=== PATIENT | male | born 1975 | race Caucasian/White ===

== ENCOUNTER 2018-01-19 12:42 | Inpatient (IN) | payer OTHER ==
[~2018-01-19] VITALS: Ht 190.5 cm; Wt 145.1 kg
[~2018-01-19 12:42] MED LIST: ACET-2619 PO; ACET-8386 PO; CIPR250T3 PO; GLIP5TAB4 PO; INSULIN NEEDLES; LEVEMIR SUBQ; LISI-420 PO; METF850T PO; OMEG1SGL6 PO; OXYC1TAB PO; SITA25TA3 PO; TRAM50TA1 PO
--- NOTE | 2018-01-19 12:42 | NUR ---
PATIENT BIBA TO BED 02 @1587
[2018-01-19 12:43] VITALS: BP 179/107
--- NOTE | 2018-01-19 12:43 | NUR ---
PATIENT PRESENTS TO ED [facility] WITH C/O OF EPIGASTRIC PAIN X 4 DAYS THAT RADIATES TO THE L SIDE OF CHEST 10/10 PAIN THAT IS DESCRIBED SHARP AND TIGHT PER PATIENT . PT STATES " I THOUGHT IT WAS FOOD POISINING BUT PAIN HAS GOTTEN WORSE AND I BECAME NAUSEOUS ON THE WAY OVER HER TO THE HOSPITAL" . SKIN IS PINK/WARM/DRY; AAOX4 WITH EVEN AND STEADY GAIT; PT. DENIES SOB . PATIENT POSITIONED FOR COMFORT, AND BAG PROVIDED FOR NAUSEA ; HOB ELEVATED; BEDRAILS UP X2; BED DOWN. ER MD MADE AWARE OF PT STATUS.
--- NOTE | 2018-01-19 12:47 | NUR ---
Patient being evaluated by DR TOVAR at bedside.
[2018-01-19] MEDS ORDERED: NACL 0.9% 1,000 ML IV ONE ×2 (12:50→15:25)
[2018-01-19] MEDS ORDERED: ONDANSETRON 4 MG/2 ML VIAL IVP ONE (12:50)
[2018-01-19 13:33] LABS: LIPASE 6 U/L (73-393)
[2018-01-19] MEDS ORDERED: fentaNYL 0.05 MG/ML VIAL IVP ONE (13:50)
[2018-01-19 14:18] LABS: BILIRUBIN,URINE 1+ (NEGATIVE); BLOOD, URINE 1+ (NEGATIVE); LEUKOCYTE ESTERASE ,URINE NEGATIVE (NEGATIVE); NITRITE, URINE NEGATIVE (NEGATIVE); UGLUCOSE 3+ (NEGATIVE)
[2018-01-19 14:19] LABS: APPEARANCE,URINE CLEAR (CLEAR); COLOR,URINE STRAW (YELLOW)
[2018-01-19 14:28] LABS: RBC,URINE 0-5 (RARE) /HPF (0-5)
[2018-01-19 14:29] LABS: WBC,URINE NONE SEEN /HPF (0-5)
--- NOTE | 2018-01-19 14:37 | NUR ---
PT. IN BED SLEEPING WITH EVEN AND UNLABORED RESPIRATIONS, VSS. BED IN LOWEST POSITION AND SIDE RAILS UP.
[2018-01-19] MEDS ORDERED: ASPIRIN 81 MG TAB.CHEW PO ONE (15:00)
[2018-01-19] MEDS ORDERED: MORPHINE SULFATE 2 MG/ML SYR IVP ONE (15:05)
[2018-01-19] MEDS ORDERED: NITROGLYCERIN 2% 1 GM PKT TP ONE (15:05)
[2018-01-19 15:11] LABS: ACETONE, SERUM NEGATIVE (NEGATIVE)
--- NOTE | 2018-01-19 15:22 | NUR ---
CALLED LAB FOR PT INR RESULTS, WAS TOLD BY JUDICIAL ASSISTANT THAT BLOOD WAS TOO LIPEMIC AND COULD NOT GET A COAGULATION STATUS, REPORTED TO MD, NEW ORDERS WHERE GIVEN. WILL MONITOR PATIENT.
[2018-01-19] MEDS ORDERED: ENOXAPARIN 120 MG/0.8 ML SYR SUBQ ONE ×2 (15:25→15:50)
[2018-01-19] MEDS ORDERED: INSULIN REGULAR, HUMAN 100 UNIT/ML VIAL IV ONE (15:25)
[2018-01-19] MEDS ORDERED: METOPROLOL 5 MG/5 ML VIAL IVP ONE (15:30)
[2018-01-19] MEDS ORDERED: ENOXAPARIN 30 MG/0.3 ML SYR SUBQ ONE (15:50)
[2018-01-19 15:59] LABS: RED BLOOD CELL COUNT(AUTO) 5.12 MIL/uL (4.20-6.10); WHITE BLOOD COUNT (AUTO) 12.7 K/uL (4.8-10.8)
[2018-01-19 16:00] LABS: HEMOGLOBIN 16.1 g/dL (12.0-18.0); LYMPHOCYTES % (AUTO) 16.9 % (20.5-51.1); MEAN CORPUSCULAR HEMOGLOBIN 32 pg (27-31); MEAN CORPUSCULAR HGB CONC 37 g/dL (33-37); MONOCYTES % (AUTO) 5.3 % (1.7-9.3); NEUTROPHILS % (AUTO) 77.2 % (42.2-75.2); PLATELET COUNT (AUTO) 303 K/uL (140-450); RED CELL DISTRIBUTION WIDTH 12.5 % (11.6-13.7)
[2018-01-19 16:01] LABS: BASOPHILS % (AUTO) 0.6 % (0.0-2.0)
[2018-01-19] MEDS ORDERED: LORazepam 2 MG/ML VIAL IVP PRN (16:20)
[2018-01-19] MEDS ORDERED: MORPHINE SULFATE 2 MG/ML SYR IVP PRN (16:20)
[2018-01-19] MEDS ORDERED: HYDROcodone/APAP 5/325 MG 1 TAB TAB PO PRN (16:20)
[2018-01-19] MEDS ORDERED: DEXTROSE 50% 50 ML SYR IVP PRN (16:30)
[2018-01-19] MEDS ORDERED: cloNIDine 0.1 MG TAB PO PRN (16:30)
[2018-01-19] MEDS ORDERED: BLOOD GLUCOSE MONITORING 1 DEV DEV FS SCH (16:30)
[2018-01-19] MEDS: BLOOD GLUCOSE MONITORING 1 DEV DEV FS SCH ×2 (16:44→20:17)
[2018-01-19 17:15] VITALS: BP 143/79
[2018-01-19] MEDS: NACL 0.9% 1,000 ML IV SCH (17:15)
--- NOTE | 2018-01-19 17:15 | NUR ---
RECEIVED PATIENT REPORT FROM ER NURSE, PATIENT IS AAOX4 AND SHOWS NO S/S OF ACUTE DISTRESS ON O2 @ 2L VIA NC, SKIN INTACT, ON TELE MONITOR, C/O EPIGASTRIC PAIN RADIATING TO LEFT SIDE OF ABD 7/10 PT ALREADY GIVEN PAIN MED IN ER, IV NOTED ON THE LEFT HAND PATENT AND INTACT WITH IVF'S INFUSING WELL, DISCUSSED POC WITH PATIENT AND HE VERBALIZED UNDERSTANDING, SAFETY PRECAUTIONS IN PLACE, BED IN LOW POSITION WITH CALL LIGHT WITHIN REACH.
--- NOTE | 2018-01-19 17:17 | NUR ---
Patient will be admitted to care of DR. MCDERMOTT . Admited to TELEMETRY . Will go to room 106 B. Belongings list completed. Report to RACHEL TIRADO .
[2018-01-19 18:03] LABS: ANION GAP 24.7 (8-16); CARBON DIOXIDE 17.2 mmol/L (21-32); POTASSIUM 4.9 mmol/L (3.5-5.1)
[2018-01-19 18:04] LABS: CREATININE 0.9 mg/dL (0.7-1.3); TOTAL BILIRUBIN 0.8 mg/dL (0.0-1.0)
[2018-01-19] MEDS: MORPHINE SULFATE 4 MG/ML SYR IVP PRN ×2 (18:33→22:20)
--- NOTE | 2018-01-19 18:43 | NUR ---
ADMINISTERED PRN PAIN MED FOR 10/10 ABD PAIN, WILL ENDORSE TO HAND ROUTER OPERATOR TO REASSESS.
--- NOTE | 2018-01-19 19:29 | NUR ---
PATIENT REPORT GIVEN TO NIGHT NURSE, PATIENT ENDORSED IN STABLE CONDITION.
[2018-01-19 20:00] VITALS: BP 130/66
[2018-01-19] MEDS: METOPROLOL 25 MG TAB PO SCH (20:24)
[2018-01-19] MEDS: INSULIN LANTUS 100 UNITS/ML 10 ML VIAL SUBQ SCH (20:28)
[2018-01-19] MEDS: INSULIN LISPRO SLIDING SCALE 100 UNITS/ML VIAL SUBQ PRN (20:29)
[2018-01-19] MEDS ORDERED: NITROGLYCERIN 0.4 MG TAB SL PRN (21:00)
--- NOTE | 2018-01-19 21:00 | NUR ---
PT C/O PAIN 04/28 ON THE CHEST THAT RADIATES TO THE LEFT SIDE, PT STATED HAVING NAUSEA AND VOMITTING AFTER DOSE OF MORPHINE, CALLED DR. VICTOR REGARDING PT PAIN, STATED TO ORDER 0.4MG NITRO SL Q5MIN FOR CHEST PAIN, WILL PUT IN ORDER AND CONTINUE WITH ORDERS.
--- NOTE | 2018-01-19 21:15 | NUR ---
CALLED MATERIALS RESEARCH ENGINEER FOR MEDICATION NITRO THAT IS NOT AVAILABLE ON UNIT, MATERIALS RESEARCH ENGINEER SAID HE WILL GET IT AND BRING IT TO THE UNIT.
--- NOTE | 2018-01-19 21:27 | NUR ---
NITRO ADMINISTERED TO PT, PT STABLE, NO DISTRESS NOTED, WILL CHECKED PT STATUS IN 5 MINUTES.
--- NOTE | 2018-01-19 21:31 | NUR ---
PT STATED PAIN IS MORE TOWARDS THE UPPER ABD AREA CURRENTLY, PT BP 107/57 HR 90, NO ADDITIONAL NITRO WAS GIVEN DUE TO PT BP AND PAIN NO LONGER IN THE CHEST AREA. WILL MEDICATE WHEN PT PAIN MEDICATION IS DUE.
--- NOTE | 2018-01-19 22:01 | NUR ---
IV 20G ON THE L HAND LEAKING AND INFILTRATED, NEW IV 22G ON THE L FA INSERTED, OLD IV TAKEN OUT, CATH INTACT, PT TOLERATED WELL, NO DISTRESS NOTED, CALL LIGHT WITHIN REACH, WILL CONTINUE TO MONITOR.
[2018-01-19] MEDS: ONDANSETRON 4 MG/2 ML VIAL IVP PRN (22:20)
--- NOTE | 2018-01-19 22:20 | NUR ---
PT C/O PAIN, PAIN MEDICATION GIVEN, PT TOLERATED WELL, NO DISTRESS NOTED, CALL LIGHT WITHIN REACH, WILL CONTINUE TO MONITOR.
[2018-01-19 22:26] LABS: CREATINE KINASE MB 0.5 ng/mL (0-3.6)
[2018-01-20] VITALS: BP 127/76
--- NOTE | 2018-01-20 00:01 | NUR ---
CHECKED ON PT, PT SLEEPING, NO DISTRESS NOTED, CALL LIGHT WITHIN REACH, WILL CONTINUE TO MONITOR.
[2018-01-20] MEDS: ONDANSETRON 4 MG/2 ML VIAL IVP PRN ×4 (02:40→20:24)
[2018-01-20] MEDS: MORPHINE SULFATE 4 MG/ML SYR IVP PRN ×4 (02:40→20:24)
--- NOTE | 2018-01-20 02:40 | NUR ---
PT C/O PAIN, PAIN MEDICATION GIVEN, PT TOLERATED WELL, NO DISTRESS NOTED, CALL LIGHT WITHIN REACH, WILL CONTINUE TO MONITOR.
[2018-01-20] MEDS: NACL 0.9% 1,000 ML IV SCH ×3 (02:47→15:19)
[2018-01-20 04:00] VITALS: BP 130/58
[2018-01-20] MEDS: BLOOD GLUCOSE MONITORING 1 DEV DEV FS SCH ×4 (06:20→21:07)
[2018-01-20] MEDS: INSULIN LISPRO SLIDING SCALE 100 UNITS/ML VIAL SUBQ PRN ×4 (06:23→21:16)
--- NOTE | 2018-01-20 06:23 | NUR ---
DUE MEDICATION GIVEN, PT TOLERATED WELL, NO DISTRESS NOTED, CALL LIGHT WITHIN REACH, WILL CONTINUE TO MONITOR.
--- NOTE | 2018-01-20 07:18 | NUR ---
ENDORSED PLAN OF CARE TO DAY SHIFT NURSE [place] RN, PT STABLE, NO DISTRESS NOTED, CALL LIGHT WITHIN REACH.
--- NOTE | 2018-01-20 07:19 | NUR ---
REPORT RECEIVED FROM MANAGER REGIONAL NURSE AT BEDSIDE FOR CONTINUITY OF CARE. PATIENT ASLEEP BUT AROUSABLE, ORIENTED X4, NO S/S OF DISTRESS NOTED, RESPIRATION EVEN AND UNLABORED, ON ROOM AIR. PATIENT AMBULATORY, NO C/O OF PAIN AT THIS TIME. L FA #24 IV PATENT AND INTACT, INFUSING IVF WELL. UPDATED BOARD, VERBALIZED PLAN OF CARE TO PATIENT, PATIENT VERBALIZED UNDERSTANDING. SAFETY PRECAUTION IN PLACE, CALL LIGHT WITHIN REACH, WILL CONTINUE TO MONITOR PATIENT.
[2018-01-20 08:00] VITALS: BP 115/55
[2018-01-20 08:22] LABS: BASOPHILS # (AUTO) 0.1 K/uL (0.00-0.22); BASOPHILS % (AUTO) 0.7 % (0.0-2.0); EOSINOPHILS # (AUTO) 0.1 K/uL (0-0.4); EOSINOPHILS % (AUTO) 0.9 % (0.0-4.0); HEMATOCRIT 38.9 % (36-52); HEMOGLOBIN 13.5 g/dL (12.0-18.0); LYMPHOCYTES # (AUTO) 1.6 K/uL (2.0-11.5); LYMPHOCYTES % (AUTO) 17.3 % (20.5-51.1); MEAN CORPUSCULAR HEMOGLOBIN 30 pg (27-31); MEAN CORPUSCULAR HGB CONC 35 g/dL (33-37); MONOCYTES # (AUTO) 0.5 K/uL (0.8-1.0); MONOCYTES % (AUTO) 5.4 % (1.7-9.3); NEUTROPHILS # (AUTO) 6.8 K/uL (1.8-7.7); NEUTROPHILS % (AUTO) 75.7 % (42.2-75.2); PLATELET COUNT (AUTO) 171 K/uL (140-450); RED BLOOD CELL COUNT(AUTO) 4.58 MIL/uL (4.20-6.10); RED CELL DISTRIBUTION WIDTH 12.9 % (11.6-13.7)
--- NOTE | 2018-01-20 08:36 | NUR ---
PT C/O PAIN, PAIN MEDICATION GIVEN, PT TOLERATED WELL, NO DISTRESS NOTED, CALL LIGHT WITHIN REACH, WILL CONTINUE TO MONITOR.
[2018-01-20] MEDS: METOPROLOL 25 MG TAB PO SCH ×2 (08:47→20:18)
[2018-01-20] MEDS: ASPIRIN 81 MG TAB.CHEW PO SCH (08:47)
[2018-01-20 08:50] LABS: ALBUMIN 2.3 g/dL (3.4-5.0); ANION GAP 11.8 (8-16); CARBON DIOXIDE 25.8 mmol/L (21-32); CREATININE 0.7 mg/dL (0.7-1.3); POTASSIUM 3.6 mmol/L (3.5-5.1); TOTAL BILIRUBIN 0.9 mg/dL (0.0-1.0)
[2018-01-20 09:00] LABS: CREATINE KINASE MB 0.3 ng/mL (0-3.6)
[2018-01-20] MEDS ORDERED: FAMOTIDINE 20 MG/2 ML VIAL IVP SCH (09:00)
[2018-01-20] MEDS ORDERED: LISINOPRIL 20 MG TAB PO SCH (09:00)
[2018-01-20] MEDS: ENOXAPARIN 40 MG/0.4 ML SYR SUBQ SCH (09:10)
--- NOTE | 2018-01-20 09:10 | NUR ---
ORDERED MEDICATIONS ADMINISTERED. PATIENT C/O EPIGASTRIC PAIN 05/29, MORPHINE PRN GIVEN, ZOFRAN PRN GIVEN PROPHYLAXIS FOR NAUSEA D/T MORPHINE. PATIENT TOLERATED THEM WELL. PATIENT NOW SITTING IN BED, TRYING TO EAT CLEAR LIQUID BREAKFAST. STATED THAT THE MORPHINE "HELPS WITH PAIN". SAFETY PRECAUTION IN PLACE, CALL LIGHT WITHIN REACH, WILL CONTINUE TO MONITOR PATIENT.
--- NOTE | 2018-01-20 09:20 | NUR ---
PATIENT HAS BEEN SCREENED AND CATEGORIZED HIGH NUTRITION RISK. PATIENT WILL BE SEEN WITHIN 1-2 DAYS OF ADMISSION. 01/20/18 - 01/21/[address]
--- NOTE | 2018-01-20 10:30 | NUR ---
PATIENT RESTING IN BED, SLEEPING. NO SIGNS OF DISTRESS NOTED. BREATHING EVEN AND UNLABORED. SAFETY PRECAUTION IN PLACE, CALL LIGHT WITHIN REACH, WILL CONTINUE TO MONITOR PATIENT.
--- NOTE | 2018-01-20 10:39 | NUR ---
FAXED INITIAL REVIEW TO [facility] [phone] PHONE [phone] X [phone] RAHEL
[2018-01-20 12:00] VITALS: BP 105/51
[2018-01-20] MEDS ORDERED: COMMUNICATION ORDER MC ONE (13:00)
--- NOTE | 2018-01-20 13:15 | NUR ---
PATIENT RESTING IN BED. NO SIGNS OF DISTRESS OR SOB NOTED. PATIENT STATES THAT PAIN IS "TOLERABLE" AT THIS TIME. SAFETY PRECAUTION IN PLACE, CALL LIGHT WITHIN REACH, WILL CONTINUE TO MONITOR PATIENT.
[2018-01-20] MEDS ORDERED: DEXTROSE 5% IV SCH (14:00)
[2018-01-20] MEDS ORDERED: MAGNESIUM SULFATE IV SCH (14:00)
--- NOTE | 2018-01-20 14:01 | NUR ---
01/20/18 RD INITIAL ASSESSMENT COMPLETED PLEASE REFER TO NUTRITION ASSESSMENT UNDER CARE ACTIVITY FOR ESTIMATED NUTRITIONAL NEEDS. 1. CONTINUE CLEAR LIQUID DIET TOLERATED 2. WHEN APPROPRIATE ADVANCE TO CCHO 60 G DIET, TOLERATED 3. RD TO FOLLOW-UP 3-5 DAYS, MODERATE RISK CRAOL GUERRERO RD
--- NOTE | 2018-01-20 15:38 | NUR ---
PT C/O PAIN, PAIN MEDICATION GIVEN, PT TOLERATED WELL, NO DISTRESS NOTED, CALL LIGHT WITHIN REACH, WILL CONTINUE TO MONITOR.
[2018-01-20] MEDS: ALUMINUM HYD/MAG/SIMETHICONE 30 ML UDC PO PRN (15:59)
[2018-01-20 16:00] VITALS: BP 112/63
--- NOTE | 2018-01-20 17:10 | NUR ---
PATIENT CAME BACK FROM CT OF ABD/PELVIS. WILL AWAIT RESULTS.
--- NOTE | 2018-01-20 19:28 | NUR ---
REPORT GIVEN TO STOCK MANAGER NURSE AT BEDSIDE FOR CONTINUITY OF CARE. PATIENT IN STABLE CONDITION.
--- NOTE | 2018-01-20 19:29 | NUR ---
RECEIVED BEDSIDE REPORT FROM DAY SHIFT NURSE TROY RN, PT SLEEPING, NO DISTRESS NOTED, IV TO L FA 22G RUNNING NS @ 100ML/HR, PT ON 2LPM O2 VIA NC, NO SOB, INITIAL ASSESSMENT DONE, ALL SAFETY PRECAUTION MET, WILL CONTINUE TO MONITOR.
[2018-01-20 20:00] VITALS: BP 111/50
[2018-01-20] MEDS: FAMOTIDINE 20 MG/2 ML VIAL IVP SCH (20:18)
[2018-01-20] MEDS: ACETAMINOPHEN 325 MG TAB PO PRN (20:18)
--- NOTE | 2018-01-20 20:18 | NUR ---
PT TEMP 101.6 TYLENOL GIVEN, PT STABLE, NO DISTRESS NOTED, WILL RECHECK TEMP IN ONE HOUR.
[2018-01-20] MEDS: INSULIN LANTUS 100 UNITS/ML 10 ML VIAL SUBQ SCH (21:15)
--- NOTE | 2018-01-20 21:16 | NUR ---
RECHECKED PT TEMP, PT TEMP NOW 99.3, PT SLEEPING, NO DISTRESS NOTED, DUE MEDICATION GIVEN, PT TOLERATED WELL, CALL LIGHT WITHIN REACH, WILL CONTINUE TO MONITOR.
--- NOTE | 2018-01-20 23:50 | NUR ---
CHECKED ON PT, PT SLEEPING, NO DISTRESS NOTED, CALL LIGHT WITHIN REACH, WILL CONTINUE TO MONITOR.
[2018-01-21] VITALS: BP 106/50
[2018-01-21] MEDS: MORPHINE SULFATE 4 MG/ML SYR IVP PRN ×4 (01:19→21:55)
[2018-01-21] MEDS: ONDANSETRON 4 MG/2 ML VIAL IVP PRN ×4 (01:19→21:56)
--- NOTE | 2018-01-21 01:19 | NUR ---
PT C/O PAIN, PAIN MEDICATION GIVEN, PT TOLERATED WELL, NO DISTRESS NOTED, CALL LIGHT WITHIN REACH, WILL CONTINUE TO MONITOR.
[2018-01-21 04:00] VITALS: BP 105/45
--- NOTE | 2018-01-21 04:00 | NUR ---
PT TEMP 100.2, COOLING MEASURE INITIATED, PT STABLE, NO DISTRESS NOTED, CALL LIGHT WITHIN REACH, WILL CONTINUE TO MONITOR.
[2018-01-21] MEDS: ALUMINUM HYD/MAG/SIMETHICONE 30 ML UDC PO PRN ×2 (04:35→11:15)
--- NOTE | 2018-01-21 04:35 | NUR ---
PT C/O FEELING EPIGASTRIC PAIN DUE TO GAS, [place] GIVEN, PT TOLERATED WELL, NO DISTRESS NOTED, CALL LIGHT WITHIN REACH, WILL CONTINUE TO MONITOR.
[2018-01-21] MEDS: NACL 0.9% 1,000 ML IV SCH ×2 (04:36→17:10)
[2018-01-21] MEDS: INSULIN LISPRO SLIDING SCALE 100 UNITS/ML VIAL SUBQ PRN ×4 (06:23→21:04)
[2018-01-21] MEDS: BLOOD GLUCOSE MONITORING 1 DEV DEV FS SCH ×4 (06:23→21:01)
[2018-01-21 07:05] LABS: BASOPHILS % (AUTO) 0.4 % (0.0-2.0); EOSINOPHILS # (AUTO) 0.2 K/uL (0-0.4); EOSINOPHILS % (AUTO) 1.4 % (0.0-4.0); HEMATOCRIT 36.1 % (36-52); HEMOGLOBIN 12.6 g/dL (12.0-18.0); LYMPHOCYTES # (AUTO) 1.5 K/uL (2.0-11.5); LYMPHOCYTES % (AUTO) 13.9 % (20.5-51.1); MEAN CORPUSCULAR HEMOGLOBIN 30 pg (27-31); MEAN CORPUSCULAR HGB CONC 35 g/dL (33-37); MEAN CORPUSCULAR VOLUME 86.2 fL (80-94); MONOCYTES # (AUTO) 0.8 K/uL (0.8-1.0); MONOCYTES % (AUTO) 7.8 % (1.7-9.3); NEUTROPHILS # (AUTO) 8.3 K/uL (1.8-7.7); NEUTROPHILS % (AUTO) 76.5 % (42.2-75.2); PLATELET COUNT (AUTO) 154 K/uL (140-450); RED BLOOD CELL COUNT(AUTO) 4.19 MIL/uL (4.20-6.10); RED CELL DISTRIBUTION WIDTH 11.8 % (11.6-13.7); WHITE BLOOD COUNT (AUTO) 10.8 K/uL (4.8-10.8)
--- NOTE | 2018-01-21 07:24 | NUR ---
ENDORSED PLAN OF CARE TO DAY SHIFT NURSE [place] RN, PT STABLE, NO DISTRESS NOTED, CALL LIGHT WITHIN REACH.
--- NOTE | 2018-01-21 07:25 | NUR ---
REPORT RECEIVED FROM SHIRT TURNER NURSE AT BEDSIDE FOR CONTINUITY OF CARE. PATIENT ASLEEP BUT AROUSABLE, ORIENTED X4, NO S/S OF DISTRESS NOTED, RESPIRATION EVEN AND UNLABORED, ON ROOM AIR. PATIENT AMBULATORY, NO C/O OF PAIN AT THIS TIME. L FA #24 IV PATENT AND INTACT, INFUSING IVF WELL. UPDATED BOARD, VERBALIZED PLAN OF CARE TO PATIENT, PATIENT VERBALIZED UNDERSTANDING. SAFETY PRECAUTION IN PLACE, CALL LIGHT WITHIN REACH, WILL CONTINUE TO MONITOR PATIENT.
[2018-01-21 07:41] LABS: ALBUMIN 1.9 g/dL (3.4-5.0); ANION GAP 13.4 (8-16); CARBON DIOXIDE 23.8 mmol/L (21-32); CHOL/HDL RATIO 9.5 (1-4.5); POTASSIUM 3.2 mmol/L (3.5-5.1)
[2018-01-21 08:00] VITALS: BP 110/57
[2018-01-21] MEDS: ASPIRIN 81 MG TAB.CHEW PO SCH (08:42)
[2018-01-21] MEDS: METOPROLOL 25 MG TAB PO SCH ×2 (08:42→21:02)
[2018-01-21] MEDS: FAMOTIDINE 20 MG/2 ML VIAL IVP SCH ×2 (08:42→21:02)
--- NOTE | 2018-01-21 08:42 | NUR ---
ADMINISTERED ORDERED MEDICATIONS. PATIENT TOLERATED THEM WELL. NO SIGNS OF DISTRESS OR SOB NOTED. PATIENT STATES TOLERABLE PAIN AT THIS TIME. SAFETY PRECAUTION IN PLACE, CALL LIGHT WITHIN REACH, WILL CONTINUE TO MONITOR PATIENT.
[2018-01-21] MEDS: ENOXAPARIN 40 MG/0.4 ML SYR SUBQ SCH (08:43)
[2018-01-21] MEDS ORDERED: LISINOPRIL 10 MG TAB PO SCH (09:00)
--- NOTE | 2018-01-21 10:14 | NUR ---
FAXED CONCURRENT REVIEW TO [facility] [phone] PHONE [phone] X [phone] RAHEL
--- NOTE | 2018-01-21 10:30 | NUR ---
INFORMED MD OF PATIENT'S 3.2 POTASSIUM LEVEL. AWAITING NEW ORDERS.
[2018-01-21] MEDS ORDERED: ATORVASTATIN 20 MG TAB PO SCH (10:45)
[2018-01-21] MEDS ORDERED: FENOFIBRATE 48 MG TAB PO SCH (10:45)
[2018-01-21 12:00] VITALS: BP 104/59
--- NOTE | 2018-01-21 13:13 | NUR ---
BLOOD SUGAR 259, INSULIN COVERAGE GIVEN. PATIENT TOLERATED IT WELL. NO SIGNS OF DISTRESS OR SOB NOTED. PATIENT STATES THAT PAIN IS "TOLERABLE" AT THIS TIME. SAFETY PRECAUTION IN PLACE, CALL LIGHT WITHIN REACH, WILL CONTINUE TO MONITOR PATIENT.
--- NOTE | 2018-01-21 15:10 | NUR ---
PAGED DR. MCDERMOTT, DR. MCDERMOTT CALLED BACK. INFORMED HIM OF PATIENT'S POTASSIUM LEVEL OF 3.2. NEW ORDERS IN. WILL ADMINISTER ONCE PHARMACY VERIFIES.
[2018-01-21] MEDS ORDERED: POTASSIUM CHLORIDE 10 MEQ TABER PO SCH (15:30)
--- NOTE | 2018-01-21 15:44 | NUR ---
ADMINISTERED ORDERED MEDICATIONS. ALSO ADMINISTERED IVP PRN ZOFRAN FOR NAUSEA D/T ALSO GIVING IVP PRN MORPHINE FOR 10/10 ABDOMINAL PAIN. PATIENT TOLERATED THEM WELL. NO SIGNS OF DISTRESS OR SOB NOTED. PATIENT MEDICATED FOR PAIN. SAFETY PRECAUTION IN PLACE, CALL LIGHT WITHIN REACH, WILL CONTINUE TO MONITOR PATIENT.
[2018-01-21 16:00] VITALS: BP 104/62
[2018-01-21] MEDS ORDERED: GEMFIBROZIL 600 MG TAB PO SCH (16:30)
--- NOTE | 2018-01-21 17:10 | NUR ---
BLOOD SUGAR 225, INSULIN COVERAGE GIVEN. PATIENT TOLERATED IT WELL. NO SIGNS OF DISTRESS OR SOB NOTED. PATIENT STATES THAT PAIN IS "TOLERABLE" AT THIS TIME. SAFETY PRECAUTION IN PLACE, CALL LIGHT WITHIN REACH, WILL CONTINUE TO MONITOR PATIENT.
--- NOTE | 2018-01-21 19:30 | NUR ---
REPORT GIVEN TO PUBLIC ADDRESS SYSTEMS MECHANIC NURSE AT BEDSIDE FOR CONTINUITY CARE. PATIENT IN STABLE CONDITION.
--- NOTE | 2018-01-21 19:31 | NUR ---
RECEIVED REPORT FROM DAY SHIFT, PT IS A/OX4, ON 2L O2 VIA NASAL CANNULA. PT HAS 22G IV TO LEFT FOREARM. PT AMBULATES WITH STEADY GAIT, SKIN IS INTACT. UPDATED BOARD. DISCUSSED PLAN OF CARE WITH PT, PT VERBALIZED UNDERSTANDING. VITAL SIGNS WITHIN NORMAL LIMITS. PT IN STABLE CONDITION, NO SIGNS OF DISTRESS NOTED. BED IN LOWEST POSITION, CALL LIGHT WITHIN REACH. WILL CONTINUE TO MONITOR.
[2018-01-21 20:00] VITALS: BP 129/66
[2018-01-21] MEDS: INSULIN LANTUS 100 UNITS/ML 10 ML VIAL SUBQ SCH (21:02)
[2018-01-21] MEDS: ACETAMINOPHEN 325 MG TAB PO PRN (21:09)
--- NOTE | 2018-01-21 21:10 | NUR ---
ADMINISTERED SCHEDULED MEDICATIONS, PT TOLERATED WELL.
[2018-01-22] VITALS: BP 129/65
--- NOTE | 2018-01-22 | NUR ---
VITAL SIGNS WITHIN NORMAL LIMITS. PT IN STABLE CONDITION, NO SIGNS OF DISTRESS NOTED. BED IN LOWEST POSITION, CALL LIGHT WITHIN REACH. WILL CONTINUE TO MONITOR.
[2018-01-22 04:00] VITALS: BP 108/59
--- NOTE | 2018-01-22 04:00 | NUR ---
VITAL SIGNS WITHIN NORMAL LIMITS. PT IN STABLE CONDITION, NO SIGNS OF DISTRESS NOTED. BED IN LOWEST POSITION, CALL LIGHT WITHIN REACH. WILL CONTINUE TO MONITOR.
[2018-01-22] MEDS: NACL 0.9% 1,000 ML IV SCH (04:04)
[2018-01-22] MEDS: INSULIN LISPRO SLIDING SCALE 100 UNITS/ML VIAL SUBQ PRN ×2 (06:31→12:04)
[2018-01-22] MEDS: MORPHINE SULFATE 4 MG/ML SYR IVP PRN (06:33)
[2018-01-22] MEDS: ONDANSETRON 4 MG/2 ML VIAL IVP PRN (06:33)
--- NOTE | 2018-01-22 06:35 | NUR ---
PT C/O SEVERE ABDOMINAL PAIN, MEDICATED WITH MORPHINE PER ORDER. PT TOLERATED WELL.
[2018-01-22] MEDS: BLOOD GLUCOSE MONITORING 1 DEV DEV FS SCH ×2 (06:40→11:43)
[2018-01-22 07:23] LABS: ALBUMIN 1.8 g/dL (3.4-5.0); ANION GAP 10.9 (8-16); CARBON DIOXIDE 26.4 mmol/L (21-32); CREATININE 0.7 mg/dL (0.7-1.3); MAGNESIUM 2.1 mg/dL (1.8-2.4); POTASSIUM 4.3 mmol/L (3.5-5.1); TOTAL BILIRUBIN 0.6 mg/dL (0.0-1.0)
[2018-01-22 07:30] LABS: BASOPHILS % (AUTO) 0.4 % (0.0-2.0); EOSINOPHILS # (AUTO) 0.2 K/uL (0-0.4); EOSINOPHILS % (AUTO) 2.4 % (0.0-4.0); HEMATOCRIT 34.5 % (36-52); HEMOGLOBIN 11.6 g/dL (12.0-18.0); LYMPHOCYTES # (AUTO) 1.4 K/uL (2.0-11.5); LYMPHOCYTES % (AUTO) 16.6 % (20.5-51.1); MEAN CORPUSCULAR HEMOGLOBIN 30 pg (27-31); MEAN CORPUSCULAR HGB CONC 34 g/dL (33-37); MEAN CORPUSCULAR VOLUME 87.4 fL (80-94); MONOCYTES # (AUTO) 0.5 K/uL (0.8-1.0); NEUTROPHILS # (AUTO) 6.5 K/uL (1.8-7.7); NEUTROPHILS % (AUTO) 74.6 % (42.2-75.2); PLATELET COUNT (AUTO) 167 K/uL (140-450); RED BLOOD CELL COUNT(AUTO) 3.94 MIL/uL (4.20-6.10); RED CELL DISTRIBUTION WIDTH 12.7 % (11.6-13.7); WHITE BLOOD COUNT (AUTO) 8.7 K/uL (4.8-10.8)
--- NOTE | 2018-01-22 07:30 | NUR ---
ENDORSEMENT RECEIVED FROM INSPECTOR BALANCE WHEEL MOTION NURSE. PATIENT AWAKE, ALERT. RESPIRATION EVEN, UNLABOR ON 2L NC. SKIN DRY AND WARM. IV PATENT AND INTACT. DENIED ABDOMINAL PAIN, SOB, N/V AT THIS TIME. COMPLAINED OF HEADACHE 01/27, WILL MEDICATE PER ORDER. PLAN OF CARE WAS DISCUSSED WITH PATIENT. BED AT LOW POSITION, SIDE RAILS UP. CALL LIGHT WITHIN REACH
--- NOTE | 2018-01-22 07:42 | NUR ---
ENDORSED PT TO DAY SHIFT RN FOR CONTINUITY OF CARE. PT IN STABLE CONDITION.
[2018-01-22 08:00] VITALS: BP 111/72
--- NOTE | 2018-01-22 08:30 | NUR ---
TYLENOL WAS OFFERED FOR THE HEADACHE, PATIENT REFUSED MED AND STATED " THE PAIN IS NOW GONE, MAYBE I JUST NEEDED TO EAT SOMETHING".
[2018-01-22] MEDS: FAMOTIDINE 20 MG/2 ML VIAL IVP SCH (08:36)
[2018-01-22] MEDS: ASPIRIN 81 MG TAB.CHEW PO SCH (08:37)
[2018-01-22] MEDS: METOPROLOL 25 MG TAB PO SCH (08:37)
[2018-01-22] MEDS: ENOXAPARIN 40 MG/0.4 ML SYR SUBQ SCH (08:45)
[2018-01-22] MEDS ORDERED: ATORVASTATIN 20 MG TAB PO SCH (09:00)
[2018-01-22] MEDS ORDERED: FENOFIBRATE 48 MG TAB PO SCH (09:00)
[2018-01-22] MEDS ORDERED: LEVEMIR SUBQ (10:29)
[2018-01-22] MEDS ORDERED: ATOR20TA40 PO (10:29)
[2018-01-22] MEDS ORDERED: TRI48 PO (10:29)
[2018-01-22] MEDS ORDERED: [UNRECOGNIZED DRUG - CODE] MC (10:29)
[2018-01-22] MEDS ORDERED: METF850T PO (10:29)
--- NOTE | 2018-01-22 11:41 | NUR ---
PATIENT AWAKE, ALERT. RESPIRATION EVEN, UNLABOR ON ROOM AIR. VS IS STABLE. DENIED PAIN, N/V AT THIS TIME. NO DISTRESS NOTED. CALL LIGHT WITHIN REACH
[2018-01-22 12:00] VITALS: BP 115/62
--- NOTE | 2018-01-22 15:15 | NUR ---
DISCHARGE INSTRUCTION AND PRESCRIPTION WAS GIVEN AND EXPLAINED TO THE PATIENT. PATIENT VERBALIZED UNDERSTANDING. IV WAS REMOVED. CATHETER INTACT, NO ACTIVE BLEEDING SEEN, PATIENT TOLERATED WELL. ID BAND WAS REMOVED. CAR DESIGNER WAS REMOVED. ALL BELONGINGS WERE TAKEN WITH THE PATIENT. PATIENT IS STABLE AT THIS TIME. Addendum: 01/22/18 at 1527 by Piedad Conway RN PATIENT WAS ESCORTED OUT BY STAFF, SHANTE GRANADOS
== END 2018-01-22 15:28 | disposition home or self-care (01) | DRG 282 ==
LOC: MED 12:42 → MTU 16:13
PROVIDERS: ADMIT Internal Medicine; ATTEND Internal Medicine
DX: K85.90 Acute pancreatitis without necrosis or infection, unspecified (principal); E44.0 Moderate protein-calorie malnutrition; E11.65 Type 2 diabetes mellitus with hyperglycemia; Z68.41 Body mass index [BMI] 40.0-44.9, adult; I10 Essential (primary) hypertension; E78.5 Hyperlipidemia, unspecified; E66.01 Morbid (severe) obesity due to excess calories; R07.89 Other chest pain; E78.1 Pure hyperglyceridemia; Z91.030 Bee allergy status; Z88.0 Allergy status to penicillin; Z90.49 Acquired absence of other specified parts of digestive tract; Z91.19 Patient's noncompliance with other medical treatment and regimen; Z79.84 Long term (current) use of oral hypoglycemic drugs
CPT/HCPCS: 36415; 71045; 80053; 81001; 82009; 82550; 82553; 82948; 83036; 83605; 83690; 83735; 83880; 84484; 85025; 85610; 87040; 87081; 93005; 96361; 96372; 96374; 96375; 99285; J1650; J1815; J2270; J2405; J3010; J3475; J3490; J7030; J7060; Q0092